=== PATIENT | female | born 1950 | race Caucasian/White ===

== ENCOUNTER 2020-08-03 01:34 | Outpatient (CLI) | payer MEDICARE, SELFPAY ==
[2020-08-03 19:24] LABS: SARS-CoV-2 RNA PCR Negative
== END 2020-08-03 01:35 | disposition home or self-care (01) ==
LOC: ANHCOVIDDT 01:35
PROVIDERS: Visit Provider Internal Medicine Gastroenterology
DX: Z01.812 Encounter for preprocedural laboratory examination (principal); Z20.828 Contact with and (suspected) exposure to other viral communicable diseases
CPT/HCPCS: 87635; C9803; U0003

== ENCOUNTER 2020-08-05 00:55 | Day surgery (SDC) | payer MEDICARE, SELFPAY ==
[2020-07-29 13:00] VITALS: BMI 20.2
[2020-08-05] MEDS: LACTATED RINGERS 1,000 ML 150 ML IV CONT (08:45)
[2020-08-05 08:47] VITALS: BP 145/82; PULSE 76; RESP 16; TEMP 36.7; O2SAT 98; BMI 20.2
--- NOTE | 2020-08-05 09:21 | PM.IMHP ---
H&P: HPI History of Present Illness Date/Time: 08/05/20 09:21 Chief complaint: gastritis Narrative: Reason for visit EGD. This very pleasant lady seen in consultation at request of the primary physician. Impression: Here very pleasant lady with history gastric ulcer disease. He she is here to assess for healing. Recent syncopal episode. Undetermined etiology. Not related to anemia. History adenomatous colon polyps. Diverticulosis coli. COPD. Anxiety. COPD. HLD. Pulmonary nodule. Vitamin B12 deficiency. History of vitamin-D deficiency. Recommendation: EGD. History: This very pleasant lady has a history of gastric ulcer disease and GI bleeding. She does think hopeful episode while traveling. She was found to have gastric ulcer disease. Patient Reports recently she had a syncopal episode. She reports that her blood count at that time was unremarkable. She is here for follow-up endoscopy to assess for healing. She does admit to taking NSAIDs when she has a headache. Patient is also taking [id number] iron. Physical examination: General: very pleasant patient in no acute distress. HEENT: Head was normocephalic sclerae is clear mouth without masses neck was supple. Heart: Rate rhythm regular without S3 or S4. Lungs: CTA. Abdomen: Soft with no guarding or rigidity. Bowel sounds were active. Neurologic: Cranial nerves 2 through 12 intact. No focal defects. No clonus. Musculoskeletal system: Revealed no joint tenderness or swelling no muscle atrophy. Extremities: Reveal no significant edema. Skin: Warm and dry with normal turgor. Mental status: intact. Patient is alert and oriented. Review of Systems Review of Systems: All systems reviewed & are unremarkable except as noted in HPI and below [facility] Past Medical History Medical History (Updated 08/05/20 @ 09:20 by Kenneth Marin DO) Adenomatous colon polyp Anxiety COPD (chronic obstructive pulmonary disease) Diverticula, colon Gastric ulcer HLD (hyperlipidemia) Pulmonary nodule Vitamin B 12 deficiency Vitamin D deficiency Social History Social History Smoking packs per day: 1 Smoking cigarettes per day: 20.0 Years smoked: 35 Smoking pack-years: 35.00 Smoking status: Former smoker Tobacco type: cigarettes Smoking end date: 11/05/07 Alcohol intake: current Drinks per week: 18 Living arrangements: alone Gender identity (if verbalized by the patient): Female Spiritual care concerns: No Meds Home Medications and Allergies Home Medications Medication Instructions Recorded Confirmed Type pantoprazole 40 mg tablet,delayed 40 mg PO QAM #90 tablet 04/30/20 07/29/20 Rx release albuterol sulfate 90 mcg/actuation 1 inhalation INHALATION Q4H PRN 05/04/20 07/29/20 History aerosol inhaler citalopram 20 mg tablet 20 mg PO DAILY tablet 05/04/20 07/29/20 History fluticasone fur. 100 mcg-umeclid 1 inhalation INHALATION DAILY #60 05/04/20 07/29/20 Rx 62.5 mcg-vilant 25 mcg each inhalat.powder tizanidine 2 mg tablet 2 mg PO TID PRN #20 tablet 05/04/20 08/05/20 Rx ergocalciferol (vitamin D2) 1,250 mcg PO WEEKLY 07/29/20 07/29/20 History iron 07/29/20 History Allergies Allergy/AdvReac Type Severity Reaction Status Date / Time cefuroxime Allergy Unknown Unknown Verified 08/05/20 08:29 codeine Allergy Unknown Unknown Verified 08/05/20 08:29 Vital Signs Vital Signs - 24 hr 08/05/20 08:47 Temperature 36.7 C Pulse Rate 76 Respiratory Rate 16 Blood Pressure 145/82 H Pulse Oximetry 98
[2020-08-05] MEDS: BENZOCAINE (*SP) 60 ML SPRAY CAN (HURRICAINE) 1 SPRAY MUCOUS MEM (09:33)
[2020-08-05 09:44] VITALS: BP 110/71; PULSE 72; RESP 17; O2SAT 100
[2020-08-05 09:54] VITALS: BP 137/95; PULSE 65; RESP 16; O2SAT 100
[2020-08-05 10:04] VITALS: BP 152/87; PULSE 61; RESP 21; O2SAT 98
== END 2020-08-05 10:29 | disposition home or self-care (01) ==
PROVIDERS: PCP Family Medicine; Visit Provider Internal Medicine Gastroenterology
PROC: 0DJ08ZZ Inspection of Upper Intestinal Tract, Via Natural or Artificial Opening Endoscopic (ICD-10-PCS; CPT 43235; principal; 2020-08-05 09:00)
DX: Z09 Encounter for follow-up examination after completed treatment for conditions other than malignant neoplasm (principal); K44.9 Diaphragmatic hernia without obstruction or gangrene; B37.81 Candidal esophagitis; Z87.11 Personal history of peptic ulcer disease; E78.5 Hyperlipidemia, unspecified; J44.9 Chronic obstructive pulmonary disease, unspecified; E53.8 Deficiency of other specified B group vitamins; F41.9 Anxiety disorder, unspecified; Z87.891 Personal history of nicotine dependence
CPT/HCPCS: 43239; 87081; 88305; 88312; J2704; J7120

== ENCOUNTER → 2021-01-24 12:21 | Outpatient (CLI) | payer MEDICARE, SELFPAY ==
--- NOTE | ~2021-01-24 | MM_ITS ---
EXAMINATION: MM screening [facility] BI w eugene HISTORY: Screening mammogram TECHNIQUE: Craniocaudal and mediolateral oblique 3-D tomosynthesis images were obtained and synthetic 2-D images were generated. CAD analysis was submitted and interpreted. COMPARISON: 10/14/2019, 10/09/2018, 09/11/2017 BREAST PARENCHYMAL COMPOSITION: There are scattered areas of fibroglandular density. FINDINGS: There is no evidence of suspicious mass, calcification, or architectural distortion to sugg est malignancy in either breast. There has been no suspicious interval change. IMPRESSION: 1. No mammographic evidence of malignancy. 2. Recommend routine screening mammography in one year. BI-RADS Category 1: Negative Reviewed, dictated and finalized at location A.
== END ==
PROVIDERS: PCP Family Medicine; Visit Provider Physician Assistant Medical
DX: Z12.31 Encounter for screening mammogram for malignant neoplasm of breast (principal)
CPT/HCPCS: 77063; 77067

== ENCOUNTER → 2021-03-29 10:34 | Outpatient (CLI) | payer MEDICARE, SELFPAY ==
--- NOTE | ~2021-03-29 | DEXA_ITS ---
Bone Density Report Name: Ene Manzo Age: 70 Sex: Female Ethnicity: White Date of : 1950 Indication: osteopenia; prior fracture; postmenopausal Referring Provider: Zari Borden Study: Bone densitometry was performed. Exam Date: March 29, 2021 Accession number: [id number] Bone Density: Region BMD T-score Z-score Classification AP Spine (L1, L4) 0.974 -0.6 1.5 Normal Femoral Neck (Left) 0.647 -1.8 0.0 Osteopenia Total Hip (Left) 0.746 -1.6 -0.1 Osteopenia Femoral Neck (Right) 0.591 -2.3 -0.5 Osteopenia Total Hip (Right) 0.721 -1.8 -0.3 Osteopenia Total Hip Mean 0.734 -1.7 -0.2 Osteopenia World Health Organization criteria for BMD impression classify patients as: Normal (T-score at or above -1.0), Osteopenia (T-score between -1.0 and -2.5), or Osteoporosis (T-score at or below -2.5). 10-year Fracture Risk(1): Major Osteoporotic Fracture 17% Hip Fracture 4.1% Reported Risk Factors: [place] (), Neck BMD=0.591, BMI=19.2, previous fracture (1) FRAX(R) Version 3.08. Fracture probability calculated for an untreated patient. Fracture probability may be lower if the patient has received treatment. Previous Exams: Region Exam Age BMD T-score BMD Change BMD Change Date g/cm2 vs Baseline vs Previous AP Spine(L1, L4) 03/29/2021 70 0.974 -0.6 0.113* 0.059* 06/27/2017 66 0.915 -1.1 0.054* 0.024* 05/02/2013 62 0.891 -1.3 0.030* -0.029* 05/21/2009 58 0.920 -1.1 0.059* -0.020 08/15/2007 56 0.940 -0.9 0.079* 0.079* 09/07/2005 54 0.861 -1.6 Total Hip(Left) 03/29/2021 70 0.746 -1.6 -0.048* -0.012 06/27/2017 66 0.758 -1.5 -0.036* 0.008 05/02/2013 62 0.750 -1.6 -0.044* -0.065* 05/21/2009 58 0.815 -1.0 0.021 -0.007 08/15/2007 56 0.822 -1.0 0.028* 0.028* 09/07/2005 54 0.794 -1.2 Total Hip(Right) 03/29/2021 70 0.721 -1.8 -0.016 0.003 06/27/2017 66 0.718 -1.8 -0.019 -0.008 05/02/2013 62 0.726 -1.8 -0.012 -0.051* 05/21/2009 58 0.777 -1.4 0.040* 0.023 08/15/2007 56 0.754 -1.5 0.017 0.017 09/07/2005 54 0.737 -1.7 *Denotes significance at 95% confidence level, LSC for AP Spine = 0.022 g/cm2, LSC for Total Hip = 0.027 g/cm2 Clinical Information Provided by Patient:
== END ==
PROVIDERS: PCP Family Medicine; Visit Provider Physician Assistant Medical
DX: Z78.0 Asymptomatic menopausal state (principal); M85.852 Other specified disorders of bone density and structure, left thigh; M85.851 Other specified disorders of bone density and structure, right thigh
CPT/HCPCS: 77080

== ENCOUNTER → 2022-03-10 13:59 | Outpatient (CLI) | payer MEDICARE, SELFPAY ==
--- NOTE | ~2022-03-10 | XR_ITS ---
EXAMINATION: XR ribs BI 3V w CXR 2V DATE: 03/10/2022 14:42 INDICATION: Pleurodynia. TECHNIQUE: Frontal and lateral views of the chest and 2 views on 3 radiographs of the right ribs and 2 views on 3 radiographs of the left ribs were obtained. COMPARISON: Chest 2 views 03/30/2018 FINDINGS: CHEST TWO VIEWS: The chest demonstrates clear lungs without pneumonia, pleural effusion, or pneumotho rax. The heart size is normal. BILATERAL RIBS: There is a fracture of left eighth rib. IMPRESSION: 1. Left eighth rib fracture. Reviewed, dictated and finalized at location A.
== END ==
PROVIDERS: PCP Family Medicine; Visit Provider Physician Assistant Medical
DX: R07.81 Pleurodynia (principal); S22.32XA Fracture of one rib, left side, initial encounter for closed fracture
CPT/HCPCS: 71046; 71110